=== PATIENT | female | born 2005 | race Caucasian/White ===

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

== ENCOUNTER 2024-05-12 01:16 | Emergency (ER) | payer OTHER ==
--- NOTE | 2024-05-12 01:27 | ERPHSYRPT ---
- History of Present Illness Time Seen by Provider: 05/12/24 01:26 Source: patient Exam Limitations: no limitations Physician History: This is a 19-year-old white female patient who presents to the emergency department with her significant other by private vehicle and complains of left upper molar pain that came on relatively abruptly yesterday. Patient states that in that same tooth she was to have a root canal performed in the past but the pain had resolved and therefore she never had dental intervention. She has tried [id number] ibuprofen and Tylenol with her last dose of ibuprofen being at 8 PM on 05/11/2024 without benefit. Timing/Duration: abrupt onset Severity: moderate Prearrival Treatment: over the counter meds Modifying Factors: Improves With: other (Chewing worsens) Associated Symptoms: tooth pain (Left upper molar) Allergies/Adverse Reactions: No Known Drug Allergies Allergy (Verified 10/16/22 16:03) Home Medications: Omeprazole 20 mg PO DAILY 05/03/22 [History] Venlafaxine HCl ER 75 mg [Effexor XR 75 MG] 1 cap PO DAILY 05/12/24 [History] Hx Tetanus, Diphtheria Vaccination/Date Given: Yes Hx Influenza Vaccination/Date Given: Yes Hx Pneumococcal Vaccination/Date Given: No Travel Risk - International Travel Have you traveled outside of the country in past 3 weeks: No - Emerging Infectious Disease Are you exhibiting symptoms associated with any current EIDs: No - Review of Systems Constitutional: No Symptoms Eyes: No Symptoms Ears, Nose, & Throat: Other (Left upper molar dental pain) Respiratory: No Symptoms Cardiac: No Symptoms Abdominal/Gastrointestinal: No Symptoms Genitourinary Symptoms: No Symptoms Musculoskeletal: No Symptoms Skin: No Symptoms Neurological: No Symptoms Psychological: No Symptoms Endocrine: No Symptoms Hematologic/Lymphatic: No Symptoms Immunological/Allergic: No Symptoms All Other Systems: Reviewed and Negative - Past Medical History Pertinent Past Medical History: Yes Cardiac History: Other Musculoskeletal History: Fractures Psycho-Social History: Attention Deficit Disorder Other Medical History: Born with a heart murmur, broken pinky finger - Past Surgical History Past Surgical History: No - Social History Smoking Status: Never smoker Exposure to second hand smoke: No Drug Use: none Patient Lives Alone: No - Nursing Vital Signs Nursing Vital Signs: Initial Vital Signs Temperature 97.4 F 05/12/24 01:23 Pulse Rate 92 H 05/12/24 01:23 Respiratory Rate 24 05/12/24 01:23 Blood Pressure 124/85 05/12/24 01:23 O2 Sat by Pulse Oximetry 99 05/12/24 01:23 Pain Scale Pain Intensity 10 - Physical Exam General Appearance: no apparent distress, alert, anxiety Eye Exam: bilateral eye: normal inspection, PERRL, EOMI, abnormal EOM Ear Exam: bilateral ear: auricle normal Nasal Exam: normal inspection Throat Exam: dental tenderness (Left upper molar with tenderness. The tender tooth has a cap on it. No abscess present), moist mucus membranes Neck Exam: normal inspection, non-tender, supple, full range of motion Cardiovascular/Respiratory Exam: chest non-tender, no respiratory distress Abdominal Exam: non-tender Neurologic Exam: alert, oriented x 3, cooperative, director of broadcast II-XII nml as tested, nml cerebellar function, nml station & gait, sensation nml Skin Exam: normal color, warm, dry SpO2 Interpretation: normal O2 Delivery: Room Air - Course Nursing assessment & vital signs reviewed: Yes Ordered Tests: Medication Summary Generic Name Dose Route Start Last Admin Trade Name Maria Teresa PRN Reason Stop Dose Admin Amoxicillin 500 mg 05/12/24 01:47 Amoxicillin Trihydrate 500 Mg Capsule PO 05/12/24 01:48 STAT ONE Ibuprofen 600 mg 05/12/24 01:47 Ibuprofen 600 Mg Tablet PO 05/12/24 01:48 STAT ONE - Progress Progress: unchanged, pain not gone completely, re-examined Progress Note: 05/12/24 01:51 My medical decision making and the assignment of low complexity to this patient's medical issue today is based on review of the patient's past medical history, review of the patient's medication list, review the patient drug allergy list, history present illness and physical findings on examination. The workup in this patient does not require radiographic or laboratory studies. Differential diagnosis includes is not limited to dental pain, dental infection, gingivitis Counseled pt/family regarding: diagnosis, need for follow-up Medical Desision Making - Independent Historian Additional History obtained from: Relative/friend - Diagnostic Testing Diagnostic test were ordered, analyzed, and reviewed by me: No - Risk of complications The pt has a mod risk of morbidity or mortality based on: Need for prescription drug management - Departure Departure Disposition: Home Clinical Impression: Pain, dental, Dental infection Condition: Stable Critical Care Time: No Referrals: ESCOBAR,AUGUSTO, DO [Primary Care Provider] - Follow up/PCP as directed Additional Instructions: Take your antibiotics as prescribed. Use the take-home Percocet 5/325 as instructed. Use ibuprofen 600 mg 3 times a day with food for the next 5 days. Call a dentist later today, 05/12/2024, to make arrangements for follow-up appointment for definitive intervention. Prescriptions: Amoxicillin 500 mg Cap [Amoxil 500 mg] 500 mg PO TID #30 cap
[2024-05-12 01:33] VITALS: PULSE 92; RESP 24; TEMP 97.4
[2024-05-12] MEDS ORDERED: MOTRIN 600 MG ONE (01:50)
[2024-05-12] MEDS ORDERED: PERCOCET TABLET 5/325MG ONE ×2 (01:50→02:03)
[2024-05-12] MEDS ORDERED: AMOXIL 500 MG ONE (01:50)
[2024-05-12] MEDS: AMOXIL 500 MG PO ONE (01:51)
[2024-05-12] MEDS: MOTRIN 600 MG PO ONE (01:51)
[2024-05-12] MEDS: PERCOCET TABLET 5/325MG PO STA ×2 (01:52→02:06)
[2024-05-12 02:09] VITALS: BP 103/70; O2SAT 98
== END 2024-05-12 02:30 ==
LOC: ED 01:16
DX: K04.7 Periapical abscess without sinus (principal)
CPT/HCPCS: 99282; A9270-GY

== ENCOUNTER 2024-05-20 12:07 | Emergency (ER) | payer OTHER ==
--- NOTE | 2024-05-20 12:08 | ERPHSYRPT ---
- History of Present Illness Time Seen by Provider: 05/20/24 12:08 Source: patient Exam Limitations: no limitations Physician History: This is a 19-year-old white female patient brought into the hospital by private vehicle accompanied by her significant other and is a patient of Dr. Escobar. This patient has a complaint of coughing and painful deep inspiration. Symptoms came on yesterday and were worse today. She also has a mild sore throat. Timing/Duration: yesterday Cough Quality/Degree: mild, dry cough Possible Cause: no prior episodes Modifying Factors: Improves With: coughing Associated Symptoms: cough (Cough and deep inspiration causing right lower chest wall pain), sore throat Allergies/Adverse Reactions: No Known Drug Allergies Allergy (Verified 10/16/22 16:03) Home Medications: Omeprazole 20 mg PO DAILY 05/03/22 [History] Venlafaxine HCl ER 75 mg [Effexor XR 75 MG] 1 cap PO DAILY 05/12/24 [History] Hx Tetanus, Diphtheria Vaccination/Date Given: Yes Hx Influenza Vaccination/Date Given: Yes Hx Pneumococcal Vaccination/Date Given: No Travel Risk - International Travel Have you traveled outside of the country in past 3 weeks: No - Emerging Infectious Disease Are you exhibiting symptoms associated with any current EIDs: Yes Symptoms: Cough: New Onset - Review of Systems Constitutional: No Symptoms Eyes: No Symptoms Ears, Nose, & Throat: No Symptoms Respiratory: Cough Cardiac: Chest Pain (Only with deep inspiration and coughing) Abdominal/Gastrointestinal: No Symptoms Genitourinary Symptoms: No Symptoms Musculoskeletal: No Symptoms Skin: No Symptoms Neurological: No Symptoms Psychological: No Symptoms Endocrine: No Symptoms Hematologic/Lymphatic: No Symptoms Immunological/Allergic: No Symptoms All Other Systems: Reviewed and Negative - Past Medical History Pertinent Past Medical History: Yes Neurological History: No Pertinent History ENT History: No Pertinent History Cardiac History: Other Respiratory History: No Pertinent History Endocrine Medical History: No Pertinent History Musculoskeletal History: Fractures GI Medical History: GERD History: No Pertinent History Psycho-Social History: Attention Deficit Disorder Female Reproductive Disorders: No Pertinent History Other Medical History: Born with a heart murmur, broken pinky finger - Past Surgical History Past Surgical History: No Neuro Surgical History: No Pertinent History Cardiac: No Pertinent History Respiratory: No Pertinent History Gastrointestinal: No Pertinent History Genitourinary: No Pertinent History Musculoskeletal: No Pertinent History Female Surgical History: No Pertinent History - Female History Hx Last Menstrual Period: one year ago - Social History Smoking Status: Never smoker Exposure to second hand smoke: No Drug Use: none Patient Lives Alone: No - Social Determinants of Health Will the patient participate in the screening: Yes Do you worry about a steady place to live?: No In the past 12 months,have you had to go without utilities?: No Transportation Issues: No Has anyone in your support network made you feel unsafe?: No Have you or anyone in your house had to go without enough: No - Nursing Vital Signs Nursing Vital Signs: Initial Vital Signs Temperature 98.4 F 05/20/24 12:15 Pulse Rate 83 05/20/24 12:15 Respiratory Rate 20 05/20/24 12:15 Blood Pressure 111/70 05/20/24 12:15 O2 Sat by Pulse Oximetry 100 05/20/24 12:15 Pain Scale Pain Intensity 0 - Physical Exam General Appearance: no apparent distress, alert, anxiety Eye Exam: PERRL/EOMI, eyes nml inspection Ears, Nose, Throat Exam: normal ENT inspection, moist mucous membranes Neck Exam: normal inspection, non-tender, supple, full range of motion Respiratory Exam: normal breath sounds, lungs clear, respiratory distress, airway intact, No chest tenderness Cardiovascular Exam: regular rate/rhythm, normal heart sounds, normal peripheral pulses Gastrointestinal/Abdomen Exam: soft, normal bowel sounds, No tenderness Pelvic Exam: not done Rectal Exam: not done Back Exam: normal inspection, normal range of motion, No CVA tenderness, No ve rtebral tenderness Extremity Exam: normal inspection, normal range of motion, pelvis stable Neurologic Exam: alert, oriented x 3, cooperative, resident in diagnostic radiology II-XII nml as tested, nml cerebellar function, nml station & gait, sensation nml Skin Exam: normal color, warm, dry Lymphatic Exam: No adenopathy SpO2 Interpretation: normal O2 Delivery: Room Air Ordered Tests: Active Orders 24 hr Category Date Time Status CHEST 1 VIEW (PORTABLE) Stat Exams 05/20/24 12:44 Taken Medication Summary Discontinued Medications Generic Name Dose Route Start Last Admin Trade Name Freq PRN Reason Stop Dose Admin Hydrocodone Bitart/Acetaminophen 10 ml 05/20/24 12:44 05/20/24 12:58 Hydrocodone/Acetaminophen 5 Ml Udcup PO 05/20/24 12:45 10 ml STAT STA Administration Hydrocodone Bitart/Acetaminophen Confirm 05/20/24 12:57 Hydrocodone/Acetaminophen 5 Ml Udcup Administered 05/20/24 12:58 Dose 10 ml .ROUTE .STK-MED ONE Prednisone 20 mg 05/20/24 12:45 05/20/24 12:58 Prednisone 20 Mg Tablet PO 05/20/24 12:46 20 mg STAT ONE Administration Prednisone Confirm 05/20/24 12:57 Prednisone 20 Mg Tablet Administered 05/20/24 12:58 Dose 20 mg .ROUTE .STK-MED ONE Lab/Rad Data: Laboratory Results 05/20/24 05/20/24 Range/Units 13:01 13:01 Influenza Type A Ag POSITIVE A (NEGATIVE) Influenza Type B Ag NEGATIVE (NEGATIVE) RSV (PCR) NEGATIVE (NEGATIVE) SARS-CoV-2 (PCR) NEGATIVE (NEGATIVE) Group A Strep Antibody NOT DETECTED (NEGATIVE) - Progress Progress: improved, re-examined Air Movement: good Progress Note: 05/20/24 13:48 My medical decision making and the assignment of low complexity to this patient's medical issue today is based on review of the patient's past medical history, review the patient's medication list, reviewed patient drug allergy list, history present illness and physical findings on examination. The workup in this patient includes chest x-ray, viral swabs and group A strep test. Differential diagnosis includes but is not limited to viral/bacterial bronchitis, pneumonia, group a strep pharyngitis, viral illness 05/20/24 14:09 I interpreted the patient's laboratory data results. Based on the laboratory data results, the patient test positive for influenza A infection. I interpreted the preliminary chest x-ray report. There are no acute cardiopulmonary processes. Blood Culture(s) Obtained: No Antibiotics given: No Counseled pt/family regarding: lab results, diagnosis, need for follow-up, rad results Medical Desision Making - Diagnostic Testing Diagnostic test were ordered, analyzed, and reviewed by me: Yes Radiological Interpretation: Interpreted by me, Teleradiologist Report - Risk of complications The pt has a mod risk of morbidity or mortality based on: Need for prescription drug management - Departure Departure Disposition: Home Clinical Impression: Influenza A H1N1 infection, Bronchitis Condition: Stable Critical Care Time: No Referrals: AUGUSTO ESCOBAR DO [Primary Care Provider] - Follow up/PCP as directed Prescriptions: Prednisone 10 mg [Deltasone 10 mg] 10 mg PO TID #12 tablet Hydrocodone/Acetaminophen [Hydrocodone-Acetamn 7.5-325/15] 10 ml PO Q8H PRN #120 ml MDD 30 ml PRN Reason: Cough Oseltamivir 75 mg [Tamiflu 75MG Capsule] 75 mg PO BID #10 cap
[2024-05-20] MEDS ORDERED: HYDROCODONE-ACETAMIN 2.5-108/5 ML SOLUTION ONE (12:57)
[2024-05-20] MEDS ORDERED: DELTASONE 20 MG ONE (12:57)
[2024-05-20] MEDS: DELTASONE 20 MG PO ONE (12:58)
[2024-05-20] MEDS: HYDROCODONE-ACETAMIN 2.5-108/5 ML SOLUTION PO STA (12:58)
[2024-05-20 13:21] VITALS: TEMP 98.2; O2SAT 99
[2024-05-20 13:46] LABS: INFLUENZA B NEGATIVE (NEGATIVE); RESPIRATORY SYNCTIAL VIRUS NEGATIVE (NEGATIVE); SARS-CoV-2 Xpert Express NEGATIVE (NEGATIVE)
[2024-05-20 13:48] LABS: INFLUENZA A POSITIVE (NEGATIVE)
[2024-05-20 14:02] VITALS: BP 112/65; PULSE 72; RESP 20
--- NOTE | 2024-05-20 14:11 | XRAY ---
Indication: Cough. Comparison: May 03, 2022 Portable chest again demonstrates normal heart, lungs, and bony thorax.
== END 2024-05-20 14:28 | disposition home or self-care (01) ==
LOC: ED 12:07
DX: J10.1 Influenza due to other identified influenza virus with other respiratory manifestations (principal); J40 Bronchitis, not specified as acute or chronic; R05.9 Cough, unspecified; R07.89 Other chest pain
CPT/HCPCS: 0241U; 71045; 87651; 99284; 99283; A9270-GY

== ENCOUNTER 2024-07-02 23:47 | Emergency (ER) | payer OTHER ==
[2024-07-03 00:29] VITALS: TEMP 98.3; O2SAT 100
--- NOTE | 2024-07-03 00:29 | ERPHSYRPT ---
- History of Present Illness Time Seen by Provider: 07/02/24 23:53 Historian: patient, family Exam Limitations: no limitations Physician History: 19-year-old female presented to the ER with complaints of mid to lower abdominal pain sudden onset around 9 PM with associated nausea dry heaving and 3 episodes of nonprojectile, nonbilious vomiting prior to arrival. Patient reports moderate to severe sharp shooting pain, aggravated with palpation movements and no significant relieving factors. Denies any urinary complaints. Does have IUD and reports some spotting started today. No fever or chills reported. Positive contact with COVID/flu. Allergies/Adverse Reactions: No Known Drug Allergies Allergy (Verified 07/03/24 00:29) Home Medications: Omeprazole 20 mg PO DAILY 05/03/22 [History] Venlafaxine HCl ER 75 mg [Effexor XR 75 MG] 150 cap PO DAILY 05/12/24 [History] Buspirone HCl 5 mg PO BID 07/03/24 [History] Hx Tetanus, Diphtheria Vaccination/Date Given: Yes Hx Influenza Vaccination/Date Given: Yes Hx Pneumococcal Vaccination/Date Given: No Travel Risk - Emerging Infectious Disease Are you exhibiting symptoms associated with any current EIDs: Yes Symptoms: Cough: New Onset - Review of Systems Constitutional: No Symptoms Ears, Nose, & Throat: No Symptoms Respiratory: No Symptoms Cardiac: No Symptoms Abdominal/Gastrointestinal: Abdominal Pain, Nausea, Vomiting Genitourinary Symptoms: No Symptoms Musculoskeletal: No Symptoms Skin: No Symptoms Neurological: No Symptoms Endocrine: No Symptoms Hematologic/Lymphatic: No Symptoms - Past Medical History Pertinent Past Medical History: Yes Neurological History: No Pertinent History ENT History: No Pertinent History Cardiac History: Other Respiratory History: No Pertinent History Endocrine Medical History: No Pertinent History Musculoskeletal History: Fractures GI Medical History: GERD History: No Pertinent History Psycho-Social History: Attention Deficit Disorder Female Reproductive Disorders: No Pertinent History Other Medical History: Born with a heart murmur, broken pinky finger - Past Surgical History Past Surgical History: No Neuro Surgical History: No Pertinent History Cardiac: No Pertinent History Respiratory: No Pertinent History Gastrointestinal: No Pertinent History Genitourinary: No Pertinent History Musculoskeletal: No Pertinent History Female Surgical History: No Pertinent History - Female History Hx Last Menstrual Period: one year ago Hx Now: (unkn) - Social History Smoking Status: Never smoker Exposure to second hand smoke: No Drug Use: none Patient Lives Alone: No - Social Determinants of Health Will the patient participate in the screening: Yes Do you worry about a steady place to live?: No In the past 12 months,have you had to go without utilities?: No Transportation Issues: No Has anyone in your support network made you feel unsafe?: No Have you or anyone in your house had to go without enough: No - Nursing Vital Signs Nursing Vital Signs: Initial Vital Signs Temperature 98.3 F 07/03/24 00:18 Pulse Rate 101 H 07/03/24 00:18 Respiratory Rate 22 07/03/24 00:18 Blood Pressure 109/50 07/03/24 00:18 O2 Sat by Pulse Oximetry 100 07/03/24 00:18 Pain Scale Pain Intensity 5 - Physical Exam General Appearance: no apparent distress, alert Eye Exam: PERRL/EOMI Ears, Nose, Throat Exam: normal ENT inspection Neck Exam: normal inspection, non-tender, supple, full range of motion Respiratory Exam: normal breath sounds, lungs clear Cardiovascular Exam: regular rate/rhythm, normal heart sounds Gastrointestinal/Abdomen Exam: tenderness (Mid to lower abdomen), guarding Back Exam: normal inspection, normal range of motion Neurologic Exam: alert, oriented x 3, cooperative Skin Exam: normal color SpO2 Interpretation: normal O2 Delivery: Room Air Ordered Tests: Active Orders 24 hr Category Date Time Status IV Insertion STAT Care 07/03/24 00:24 Active NPO (ED) STAT Care 07/03/24 00:24 Active ABDOMEN AND PELVIS W CONTRAST [CT] Stat Exams 07/03/24 01:55 Completed CBC W DIFF Stat Lab 07/03/24 00:40 Completed CMP Stat Lab 07/03/24 00:40 Completed HCG QUALITATIVE, SERUM Stat Lab 07/03/24 00:40 Completed LIPASE Stat Lab 07/03/24 00:40 Completed UA W/RFX UR CULTURE Stat Lab 07/03/24 00:24 Completed Medication Summary Discontinued Medications Generic Name Dose Route Start Last Admin Trade Name Freq PRN Reason Stop Dose Admin Fentanyl Citrate 50 mcg 07/03/24 00:24 07/03/24 02:06 Fentanyl Citrate 100 Mcg/2 Ml* Vial IV 07/03/24 00:25 Not Given STAT ONE Fentanyl Citrate Confirm 07/03/24 01:44 Fentanyl Citrate 100 Mcg/2 Ml* Vial Administered 07/03/24 01:45 Dose 100 mcg .ROUTE .STK-MED ONE Sodium Chloride 1,000 mls @ 999 mls/hr 07/03/24 00:24 07/03/24 01:48 Sodium Chloride 0.9% 1000 Ml IV 07/03/24 01:24 999 mls/hr .Q1H1M STA Administration Sodium Chloride Confirm 07/03/24 01:45 Sodium Chloride 0.9% 1000 Ml Administered 07/03/24 01:46 Dose 1,000 mls @ ud .ROUTE .STK-MED ONE Ondansetron HCl 4 mg 07/03/24 00:24 07/03/24 01:49 Ondansetron Hcl 4 Mg/2 Ml Vial IV 07/03/24 00:25 4 mg STAT ONE Administration Ondansetron HCl Confirm 07/03/24 01:44 Ondansetron Hcl 4 Mg/2 Ml Vial Administered 07/03/24 01:45 Dose 4 mg .ROUTE .STK-MED ONE Lab/Rad Data: Laboratory Result Diagrams 07/03/24 00:40 07/03/24 00:40 Laboratory Results 07/03/24 07/03/24 07/03/24 Range/Units 00:40 00:40 00:40 WBC 9.2 (3.98-10.04) x10^3/uL RBC 4.73 (3.93-5.22) x10^6/uL Hgb 13.9 (11.2-15.7) g/dL Hct 40.1 (34.1-44.9) % MCV 84.8 (79.4-94.8) fL MCH 29.4 (25.6-32.2) pg MCHC 34.7 (32.2-35.5) g/dL RDW 12.2 (11.7-14.4) % Plt Count 229 (182-369) x10^3/uL MPV 8.2 L (9.4-12.3) fL Gran % 68.7 (34.0-71.1) % Immature Gran % (Auto) 0.1 (0.001-0.429) % Nucleat RBC Rel Count 0.0 (0.00-0.2) % Eos # (Auto) 0.05 (0.04-0.36) x10^3/uL Immature Gran # (Auto) 0.01 (0.001-0.031) x10^3u/L Absolute Lymphs (auto) 2.38 (1.18-3.74) x10^3/uL Absolute Monos (auto) 0.40 (0.24-0.86) x10^3/uL Absolute Nucleated RBC 0.00 (0.00-0.012) x10^3u/L Lymphocytes % 26.0 (19.3-51.7) % Monocytes % 4.4 L (4.7-12.5) % Eosinophils % 0.5 L (0.7-5.8) % Basophils % 0.3 (0.1-1.2) % Absolute Granulocytes 6.28 H (1.56-6.13) x10^3/uL Basophils # 0.03 (0.01-0.08) x10^3/uL Sodium 140 (135-145) mmol/L Potassium 3.3 L (3.5-5.1) mmol/L Chloride 106 (98-107) mmol/L Carbon Dioxide 20 L (22-30) mmol/L Anion Gap 17.4 H (5-15) MEQ/L BUN 11 (7-17) mg/dL Creatinine 0.74 (0.52-1.04) mg/dL Estimated GFR 118.0 ML/MIN Glucose 104 (74-106) mg/dL Calcium 10.1 (8.4-10.2) mg/dL Total Bilirubin 1.50 H (0.2-1.3) mg/dL AST 46 H (14-36) U/L ALT 31 (0-35) U/L Alkaline Phosphatase 114 (38-126) U/L Serum Total Protein 8.8 H (6.3-8.2) g/dL Albumin 5.3 H (3.5-5.0) g/dL Lipase 115 (23-300) U/L Serum HCG, Qual NEGATIVE (NEGATIVE) Urine Color (Yellow) Urine Appearance (Clear) Urine pH (4.6-8.0) Ur Specific [place] (1.005-1.030) Urine Protein (Negative) Urine Glucose (UA) (Negative) mg/dL Urine Ketones (Negative) Urine Blood (Negative) Urine Nitrite (Negative) Urine Bilirubin (Negative) Urine Urobilinogen (0.2) mg/dL Ur Leukocyte Esterase (Negative) U Hyaline Cast (Auto) (0-2) /LPF Urine Microscopic RBC (0-5) /HPF Urine Microscopic WBC (0-5) /HPF Ur Epithelial Cells (None Seen) /HPF Urine Bacteria (None Seen) /HPF Urine Culture Reflexed (NO) Influenza Type A Ag (NEGATIVE) Influenza Type B Ag (NEGATIVE) RSV (PCR) (NEGATIVE) SARS-CoV-2 (PCR) (NEGATIVE) 07/03/24 07/03/24 Range/Units 00:35 00:24 WBC (3.98-10.04) x10^3/uL RBC (3.93-5.22) x10^6/uL Hgb (11.2-15.7) g/dL Hct (34.1-44.9) % MCV (79.4-94.8) fL MCH (25.6-32.2) pg MCHC (32.2-35.5) g/dL RDW (11.7-14.4) % Plt Count (182-369) x10^3/uL MPV (9.4-12.3) fL Gran % (34.0-71.1) % Immature Gran % (Auto) (0.001-0.429) % Nucleat RBC Rel Count (0.00-0.2) % Eos # (Auto) (0.04-0.36) x10^3/uL Immature Gran # (Auto) (0.001-0.031) x10^3u/L Absolute Lymphs (auto) (1.18-3.74) x10^3/uL Absolute Monos (auto) (0.24-0.86) x10^3/uL Absolute Nucleated RBC (0.00-0.012) x10^3u/L Lymphocytes % (19.3-51.7) % Monocytes % (4.7-12.5) % Eosinophils % (0.7-5.8) % Basophils % (0.1-1.2) % Absolute Granulocytes (1.56-6.13) x10^3/uL Basophils # (0.01-0.08) x10^3/uL Sodium (135-145) mmol/L Potassium (3.5-5.1) mmol/L Chloride (98-107) mmol/L Carbon Dioxide (22-30) mmol/L Anion Gap (5-15) MEQ/L BUN (7-17) mg/dL Creatinine (0.52-1.04) mg/dL Estimated GFR ML/MIN Glucose (74-106) mg/dL Calcium (8.4-10.2) mg/dL Total Bilirubin (0.2-1.3) mg/dL AST (14-36) U/L ALT (0-35) U/L Alkaline Phosphatase (38-126) U/L Serum Total Protein (6.3-8.2) g/dL Albumin (3.5-5.0) g/dL Lipase (23-300) U/L Serum HCG, Qual (NEGATIVE) Urine Color Yellow (Yellow) Urine Appearance Clear (Clear) Urine pH 6.5 (4.6-8.0) Ur Specific [place] 1.020 (1.005-1.030) Urine Protein Negative (Negative) Urine Glucose (UA) Negative (Negative) mg/dL Urine Ketones 15 A (Negative) Urine Blood Trace (Negative) Urine Nitrite Negative (Negative) Urine Bilirubin Negative (Negative) Urine Urobilinogen 1.0 A (0.2) mg/dL Ur Leukocyte Esterase Negative (Negative) U Hyaline Cast (Auto) NONE SEEN (0-2) /LPF Urine Microscopic RBC 0-2 (0-5) /HPF Urine Microscopic WBC 0-2 (0-5) /HPF Ur Epithelial Cells None Seen (None Seen) /HPF Urine Bacteria None Seen (None Seen) /HPF Urine Culture Reflexed NO (NO) Influenza Type A Ag NEGATIVE (NEGATIVE) Influenza Type B Ag NEGATIVE (NEGATIVE) RSV (PCR) NEGATIVE (NEGATIVE) SARS-CoV-2 (PCR) NEGATIVE (NEGATIVE) - Progress Progress: improved Progress Note: 07/03/24 03:18 19-year-old is evaluated in the ER for lower abdominal pain with nausea vomiting. Patient had guarding and tenderness on initial evaluation. She is given symptomatic treatment along with fluids, on reevaluation she is symptom- free. No peritoneal signs on repeated eval. Workup showed normal white count, chemistries with some element of dehydration, no UTI. Patient has a positive exposure to flu, pain swabs which are negative. Obtained CT abdomen pelvis with contrast which is negative for any acute abdominal pelvic finding, does have some right-sided pneumonia. Patient did report having some coughing off and on for the last few days. I would give her Z-Gabriel to go home. I do not know the exact cause of her abdominal pain but have ruled out all the major emergencies., Recommended outpatient follow-up. Discussed signs symptoms of worsening needing return to ER which she seems understanding. Stable for discharge. Counseled pt/family regarding: lab results, diagnosis, need for follow-up, rad results Medical Desision Making - Independent Historian Additional History obtained from: Spouse - Diagnostic Testing Diagnostic test were ordered, analyzed, and reviewed by me: Yes Radiological Interpretation: Reviewed by me - Risk of complications The pt has a mod risk of morbidity or mortality based on: Need for prescription drug management - Departure Departure Disposition: Home Clinical Impression: Lower abdominal pain, Pneumonia Condition: Stable Critical Care Time: No Referrals: AUGUSTO ESCOBAR DO [Primary Care Provider] - Follow up/PCP as directed Instructions: Pneumonia, Adult (DC), Abdominal pain Additional Instructions: Take Tylenol/ibuprofen as needed. Follow-up with primary care for reevaluation. Return to ER for any worsening. Prescriptions: Azithromycin 250 mg [Zithromax 250 MG TABLET] 250 mg PO ZPACK #6 tablet
[2024-07-03 00:45] LABS: Absolute Neutrophil Ct (ANC) 6.28 x10^3/uL (1.56-6.13); BASOPHIL % 0.3 % (0.1-1.2); Basophil (Absolute #) 0.03 x10^3/uL (0.01-0.08); Eosinophil % 0.5 % (0.7-5.8); Eosinophil (Absolute #) 0.05 x10^3/uL (0.04-0.36); Hematocrit 40.1 % (34.1-44.9); Hemoglobin 13.9 g/dL (11.2-15.7); IMMATURE GRAN # 0.01 x10^3u/L (0.001-0.031); IMMATURE GRAN % 0.1 % (0.001-0.429); Lymphocyte (Absolute #) 2.38 x10^3/uL (1.18-3.74); Mean Cell Volume 84.8 fL (79.4-94.8); Mean Corpuscular Hemoglobin 29.4 pg (25.6-32.2); Mean Corpuscular Hgb Concent. 34.7 g/dL (32.2-35.5); Mean Platelet Volume 8.2 fL (9.4-12.3); Monocytes % 4.4 % (4.7-12.5); Neutrophil % 68.7 % (34.0-71.1); Platelet Count 229 x10^3/uL (182-369); Red Blood Count 4.73 x10^6/uL (3.93-5.22); Red Cell Distribution Width 12.2 % (11.7-14.4); White Blood Count 9.2 x10^3/uL (3.98-10.04)
[2024-07-03 00:47] LABS: Appearance Clear (Clear); Bilirubin Negative (Negative); Blood Trace (Negative); Glucose, Urine Negative (Negative); Ketones 15 (Negative); Leukocyte Esterase Negative (Negative); Nitrite Negative (Negative); Ph 6.5 (4.6-8.0); Protein,Urine Dip Negative (Negative)
[2024-07-03 00:52] LABS: Bacteria None Seen /HPF (None Seen); Epithelial Cells None Seen /HPF (None Seen); Hyaline Casts NONE SEEN /LPF (0-2); RBC 0-2 /HPF (0-5); WBC 0-2 /HPF (0-5)
[2024-07-03 00:58] LABS: ALBUMIN 5.3 g/dL (3.5-5.0); ANION GAP 17.4 MEQ/L (5-15); BILIRUBIN,TOTAL 1.5 mg/dL (0.2-1.3); Calcium 10.1 mg/dL (8.4-10.2); Creatinine 1 0.74 mg/dL (0.52-1.04); Potassium 3.3 mmol/L (3.5-5.1); Total Protein 8.8 g/dL (6.3-8.2)
[2024-07-03 01:05] LABS: HCG SERUM TEST NEGATIVE (NEGATIVE)
[2024-07-03 01:22] LABS: INFLUENZA A NEGATIVE (NEGATIVE); INFLUENZA B NEGATIVE (NEGATIVE); RESPIRATORY SYNCTIAL VIRUS NEGATIVE (NEGATIVE); SARS-CoV-2 Xpert Express NEGATIVE (NEGATIVE)
[2024-07-03] MEDS ORDERED: SUBLIMAZE 100 MCG/2 ML ONE (01:44)
[2024-07-03] MEDS ORDERED: Zofran 4 MG/2 ML VIAL ONE (01:44)
[2024-07-03] MEDS ORDERED: Sodium Chloride 0.9% 1000 ML 1,000 ML ONE (01:45)
[2024-07-03] MEDS: Sodium Chloride 0.9% 1000 ML 1,000 ML IV STA (01:48)
[2024-07-03] MEDS: Zofran 4 MG/2 ML VIAL IV ONE (01:49)
[2024-07-03] MEDS: SUBLIMAZE 100 MCG/2 ML IV ONE (01:49)
[2024-07-03 03:05] VITALS: BP 120/79; PULSE 88; RESP 19
--- NOTE | 2024-07-03 03:07 | XRAY ---
CLINICAL HISTORY: lower abd pain COMPARISON: None TECHNIQUE: Contiguous axial images were obtained from the level of the diaphragm to the pubic symphysis without and with intravenous contrast. Coronal and sagittal reconstructions were likewise performed and indicated to increase the sensitivity for detecting clinically relevant pathology. If IV contrast material had not been administered, the likelihood of detecting abnormalities relevant to the patient's condition would have been substantially decreased. CT scan was performed according to ALARA (as low as reasonably achievable). FINDINGS: Few small patchy ground-glass opacities are noted involving posterior basal segment of right lower lobe- possibility of pneumonitis. The liver is normal in size and attenuation. No focal liver lesions are seen. There is no intra or extrahepatic biliary ductal dilatation. Hepatic vasculature is patent. The gallbladder is present. The spleen, pancreas, and adrenal glands are unremarkable. The kidneys are normal in size and attenuation. There is no hydronephrosis or perinephric fat stranding. No renal calculi or renal masses are identified. The ureters are normal in caliber and no ureteral calculi are seen. The bladder is normal in contour. Pelvic viscera are unremarkable. No focal or diffuse bowel wall thickening or evidence of bowel obstruction is identified. No acute appendicitis. Abdominal and pelvic vasculature is patent. No adenopathy or fluid collections are seen. No aggressive appearing osseous lesions are identified. IMPRESSION: Few small patchy ground-glass opacities are noted involving posterior basal segment of right lower lobe- possibility of pneumonitis. No significant abnormality detected in the abdomen. Electronically Signed by: Clemente Rushing MD. (07/03/2024 03:02:38 EST)
== END 2024-07-03 04:00 | disposition home or self-care (01) ==
LOC: ED 23:47
DX: J18.9 Pneumonia, unspecified organism (principal); R10.30 Lower abdominal pain, unspecified; R11.2 Nausea with vomiting, unspecified; Z79.899 Other long term (current) drug therapy
CPT/HCPCS: 0241U; 36415; 74177; 80053; 81001; 83690; 84703; 85025; 96374; 99285; 99284; J2405; J3010

== ENCOUNTER 2024-08-13 11:53 | Day surgery (SDC) | payer OTHER ==
[2024-08-13 12:20] LABS: HCG URINE TEST NEGATIVE (NEGATIVE)
[2024-08-13 12:23] VITALS: RESP 16
[2024-08-13] MEDS ORDERED: Lactated Ringers 1,000 ML IV SCH (12:30)
[2024-08-13] MEDS ORDERED: propofoL IV ONE (14:40)
[2024-08-13 15:13] VITALS: BP 102/65; PULSE 66; TEMP 97.5; O2SAT 100
--- NOTE | 2024-08-14 11:40 | OP ---
SURGERY DATE/TIME: 08/13/2024 [id number] PREOPERATIVE DIAGNOSES: Reflux and heartburn. POSTOPERATIVE DIAGNOSIS: Normal-appearing esophagogastroduodenoscopy. PROCEDURE: Esophagogastroduodenoscopy with biopsy. SURGEON: Julio Ndiaye MD. ANESTHESIA: IV. CONDITION: Stable. COMPLICATIONS: None. SPECIMENS: As below. INDICATIONS: The patient is a 19-year-old female, symptoms are most consistent with severe reflux, also heartburn. Did not really have any improvement on PPI. Discussion had with the patient. She does want to proceed with EGD. FINDINGS: Normal-appearing EGD. Biopsy was taken in duodenum, antrum, distal esophagus. DESCRIPTION OF PROCEDURE: The patient was brought to the endoscopy suite. Routinely positioned and prepared. IV anesthesia induced by Anesthesia. The gastroscope was inserted through the mouth, advanced to the third portion of the duodenum. Duodenum was normal in appearance. Several biopsies were taken to rule out celiac. The stomach was normal in appearance. Retroflexion without any significant hiatal hernia. Antral biopsies were taken with cold forceps to rule out H pylori. The esophagus and GE junction all appeared normal. Distal esophageal biopsies were taken with cold forceps. The stomach was suctioned out. The scope was withdrawn. Patient tolerated the procedure well, was taken to Recovery in stable condition. RECOMMENDATIONS: Follow up in office within 1 month for pathology result. Depending on reflux symptoms, could proceed with upper GI as well as Ch plus/minus manometry.
== END 2024-08-13 15:26 | disposition home or self-care (01) ==
LOC: SDC 11:53
PROVIDERS: ATTEND Surgery
DX: K21.9 Gastro-esophageal reflux disease without esophagitis (principal); R12 Heartburn
CPT/HCPCS: 81025; J2704

== ENCOUNTER 2024-10-14 19:16 | Emergency (ER) | payer OTHER ==
[2024-10-14 19:32] VITALS: TEMP 97.5
[2024-10-14 20:13] VITALS: BP 104/62; PULSE 74; RESP 16; O2SAT 98
[2024-10-14] MEDS ORDERED: DELTASONE 20 MG ONE ×2 (20:14→20:16)
[2024-10-14] MEDS: DELTASONE 20 MG PO SCH (20:15)
--- NOTE | 2024-10-14 20:23 | ERPHSYRPT ---
- History of Present Illness Time Seen by Provider: 10/14/24 20:17 Source: patient Exam Limitations: no limitations Patient Subjective Stated Complaint: pt reports rash starting 2 days ago, reports a couple weeks ago she was treated for ring worm. pt does not believe her new rash is related. pt denies any new exposures. Triage Nursing Assessment: pt is aox3, pupils perrl, afebrile, resps easy and non labored, cap refill < 3 seconds, radial pulses strong and equal. pt with a red, raised rash to her trunk and back. no drainage noted. pt denies pain or itching. Physician History: Patient is a 19-year-old female presents to emergency department for evaluation of a macular papular rash on her chest and back that started 2 days ago. Patient states symptoms started after initiating cream to treat ringworm. The rash is painless. No pruritus. Patient states she is otherwise healthy. She has no significant past medical history. No systemic manifestations. No fever no nausea no vomiting no diarrhea. No chest pain or shortness of breath. No intraoral lesions. Patient otherwise feels well. She voices no other complaints or concerns at this time. Portions of this note were created with voice recognition technology. There may be grammatical, spelling, punctuation or sound alike errors Timing/Duration: today Severity: moderate Modifying Factors: Improves With: nothing Associated Symptoms: denies symptoms Allergies/Adverse Reactions: No Known Drug Allergies Allergy (Verified 08/13/24 12:13) Home Medications: Venlafaxine HCl ER 75 mg [Effexor XR 75 MG] 150 cap PO DAILY 05/12/24 [History] Buspirone HCl 5 mg PO BID 07/03/24 [History] Hx Tetanus, Diphtheria Vaccination/Date Given: (unk) Hx Influenza Vaccination/Date Given: No Hx Pneumococcal Vaccination/Date Given: No Immunizations Up to Date: No Travel Risk - International Travel Have you traveled outside of the country in past 3 weeks: No - Emerging Infectious Disease Are you exhibiting symptoms associated with any current EIDs: No Symptoms: Cough: New Onset - Review of Systems Constitutional: No Symptoms, No Fever, No Chills Eyes: No Symptoms Ears, Nose, & Throat: No Symptoms Respiratory: No Symptoms, No Cough, No Dyspnea Cardiac: No Symptoms, No Chest Pain, No Edema, No Syncope Abdominal/Gastrointestinal: No Symptoms, No Abdominal Pain, No Nausea, No Vomiting, No Diarrhea Genitourinary Symptoms: No Symptoms, No Dysuria Musculoskeletal: No Symptoms, No Back Pain, No Neck Pain Skin: No Symptoms, No Rash Neurological: No Symptoms, No Dizziness, No Focal Weakness, No Sensory Changes Psychological: No Symptoms Endocrine: No Symptoms Hematologic/Lymphatic: No Symptoms Immunological/Allergic: No Symptoms All Other Systems: Reviewed and Negative - Past Medical History Pertinent Past Medical History: Yes Neurological History: No Pertinent History ENT History: No Pertinent History Cardiac History: Other Respiratory History: No Pertinent History Endocrine Medical History: No Pertinent History Musculoskeletal History: Fractures GI Medical History: GERD History: No Pertinent History Psycho-Social History: Attention Deficit Disorder Female Reproductive Disorders: No Pertinent History Other Medical History: Born with a heart murmur, broken pinky finger - Past Surgical History Past Surgical History: Yes Neuro Surgical History: No Pertinent History Cardiac: No Pertinent History Respiratory: No Pertinent History Gastrointestinal: No Pertinent History Genitourinary: No Pertinent History Musculoskeletal: No Pertinent History Female Surgical History: No Pertinent History Other Surgical History: endoscopy - Female History Hx Last Menstrual Period: 2023 iud Hx Now: No - Social History Smoking Status: Never smoker Exposure to second hand smoke: Yes Drug Use: none - Social Determinants of Health Will the patient participate in the screening: Unable to obtain - Nursing Vital Signs Nursing Vital Signs: Initial Vital Signs Temperature 97.5 F 10/14/24 19:22 Pulse Rate 68 10/14/24 19:22 Respiratory Rate 18 10/14/24 19:22 Blood Pressure 119/74 10/14/24 19:22 O2 Sat by Pulse Oximetry 100 10/14/24 19:22 Pain Scale Pain Intensity 0 - Physical Exam General Appearance: no apparent distress, alert Eye Exam: PERRL/EOMI, eyes nml inspection Ears, Nose, Throat Exam: normal ENT inspection, pharynx normal, moist mucous membranes Neck Exam: normal inspection, full range of motion Respiratory Exam: normal breath sounds, lungs clear, No respiratory distress Cardiovascular Exam: regular rate/rhythm, normal heart sounds, normal peripheral pulses Gastrointestinal/Abdomen Exam: soft, normal bowel sounds, No tenderness, No mass Back Exam: normal inspection, normal range of motion, No CVA tenderness, No vertebral tenderness Extremity Exam: normal inspection, normal range of motion, pelvis stable Neurologic Exam: alert, oriented x 3, cooperative, normal mood/affect, nml station & gait, sensation nml, No motor deficits Skin Exam: normal color, warm, dry, No rash Lymphatic Exam: No adenopathy SpO2 Interpretation: normal SpO2: 98 O2 Delivery: Room Air - Course Nursing assessment & vital signs reviewed: Yes Ordered Tests: Medication Summary Generic Name Dose Route Start Last Admin Trade Name Freq PRN Reason Stop Dose Admin Prednisone 40 mg 10/15/24 10:00 10/14/24 20:15 Prednisone 20 Mg Tablet PO 11/14/24 09:59 40 mg DAILY STANISLAW Administration Discontinued Medications Generic Name Dose Route Start Last Admin Trade Name Freq PRN Reason Stop Dose Admin Prednisone Confirm 10/14/24 20:14 Prednisone 20 Mg Tablet Administered 10/14/24 20:15 Dose 20 mg .ROUTE .STK-MED ONE Prednisone Confirm 10/14/24 20:16 Prednisone 20 Mg Tablet Administered 10/14/24 20:17 Dose 20 mg .ROUTE .STK-MED ONE - Progress Progress: improved Progress Note: 19-year-old female presents the emergency department for evaluation of a macular papular rash on her chest and back that was observed today. No new exposures. No pruritus. No intraoral lesions. No fever. Patient otherwise asymptomatic. Patient received a dose of prednisone in our ED. A prescription for the same forwarded to patient's pharmacy. No indication for further workup at this time. Will discharge home. Patient agrees to follow-up with her primary care doctor within 48 hours for reevaluation. Portions of this note were created with voice recognition technology. There may be grammatical, spelling, punctuation or sound alike errors Complexity of problem addressed as moderate acute complicated. No critical care time. Complexity of data reviewed and analyzed is none. No specialized testing ordered. Diagnosis made based on history and physical exam. Risk of complication and or risk of morbidity/mortality of patient management is moderate. A prescription for prednisone forwarded to patient's pharmacy. Vital stable. Time spent to discharge patient is approximately 15 minutes. Plan of care established for shared decision making. No social determinants of health present to impede follow-up. Portions of this note were created with voice recognition technology. There may be grammatical, spelling, punctuation or sound alike errors 10/14/24 20:28 Counseled pt/family regarding: diagnosis, need for follow-up - Departure Departure Disposition: Home Clinical Impression: Macular papular rash Condition: Stable Critical Care Time: No Referrals: AUGUSTO ESCOBAR DO [Primary Care Provider, [facility]] - Follow up/PCP as directed Additional Instructions: Discharge/Care Plan ALIA DONOHUE was seen on 10/14/24 in the Emergency Room. The patient was counseled regarding Diagnosis,Lab results, Imaging studies, need for follow up and when to return to the Emergency Room. Prescriptions given: Discharge Note I have spoken with the patient and/or caregivers. I have explained the patient's condition, diagnosis and treatment plan based on the information available to me at this time. I have answered the patient's and/or caregiver's questions and addressed any concerns. The patient and/or caregivers have as good understanding of the patient's diagnosis, condition and treatment plan as can be expected at this point. The vital signs have been stable. The patient's condition is stable and appropriate for discharge from the emergency department. The patient will pursue further outpatient evaluation with the primary care physician or other designated or consulting physician as outlined in the discharge instructions. The patient and/or caregivers are agreeable to this plan of care and follow-up instructions have been explained in detail. The patient and/or caregivers have received these instruction. The patient/and or caregivers are aware that any significant change in condition or worsening of symptoms should prompt an immediate return to this or the closest emergency department or call 911. Prescriptions: predniSONE [Prednisone] 40 mg PO DAILY 3 Days #6 tablet
== END 2024-10-14 20:40 | disposition home or self-care (01) ==
LOC: ED 19:16
DX: R21 Rash and other nonspecific skin eruption (principal); Z79.52 Long term (current) use of systemic steroids; Z79.899 Other long term (current) drug therapy
CPT/HCPCS: 99281; 99283; A9270-GY